=== PATIENT | male | born 1990 | race Caucasian/White ===

== ENCOUNTER 2019-09-20 08:02 | Emergency (ER) | payer OTHER ==
[~2019-09-20] VITALS: Ht 177.8 cm; Wt 90.7 kg
[~2019-09-20 08:02] MED LIST: ACETAMINOPHEN; ALBU90OI INH; AMOCLA875 PO; CEPH500 PO; CLIN300 PO; CYCL10 PO; DOCU100 PO; FOLI1 PO; HYDACE5 PO; HYDACE5325 PO; IBUP400 PO; IBUP600 PO; IBUP800 PO; MELO7.5 PO; NAPR500 PO; NAPROXEN; Norco 5-325 Ta1 EACH PO; OMEP20ER PO; ONDA4ODT MM; OXYACE5T PO; OXYACE7.5T PO; OXYC5 PO; PRED20 PO; RXHYDACE PO; SERT50 PO; SULTRIDS PO; THIA100 PO; TRAM50 PO; Ultram50 MG PO
[2019-09-20] MEDS ORDERED: NAPR500EC PO (08:14)
[2019-09-20] MEDS ORDERED: Percocet 5-3251 EACH PO (08:38)
[2019-09-20] MEDS ORDERED: METPRE4DP PO (08:38)
[2019-09-20] MEDS ORDERED: CYCL10 PO (08:38)
== END 2019-09-20 09:55 | disposition home or self-care (01) ==
LOC: ER 08:02
DX: M54.41 Lumbago with sciatica, right side (principal); F17.220 Nicotine dependence, chewing tobacco, uncomplicated
CPT/HCPCS: 99283; A9270-GY; J7512

== ENCOUNTER → 2023-12-05 | Outpatient (CLI) | payer OTHER ==
[~2023-12-05] MED LIST changes: +METPRE4DP PO; +NAPR500EC PO; +Percocet 5-3251 EACH PO
[2023-12-12 11:03] LABS: BUPRENORPHINE GLUC,URN,QUANT <5 ng/mL; BUPRENORPHINE,URN,QUANT <2 ng/mL; NALOXONE,URN,QUANT <100 ng/mL
== END ==
LOC: LAB SHORT 16:08 → LAB 16:08
PROVIDERS: Family Medicine
DX: F11.20 Opioid dependence, uncomplicated (principal)
CPT/HCPCS: G0480